=== PATIENT | female | born 1975 | race Caucasian/White ===

== ENCOUNTER 2018-12-23 06:15 | Day surgery (SDC) | payer BC ==
[2018-12-22 11:25] VITALS: BMI 29.2
--- NOTE | 2018-12-23 07:49 | HP ---
History & Physical Update - Physical Physical: No Change - Assessment Assessment: No Change - Plan Plan: No Change (H&P reviwed , no changes , for hysteroscopy , D&C ,polypectomy)
[2018-12-23] MEDS ORDERED: PROPOFOL 20 ML ONE ×3 (07:56→08:31)
[2018-12-23] MEDS ORDERED: LIDOCAINE HCL/PF 2% SDV 5ML VIAL ONE (07:56)
[2018-12-23] MEDS ORDERED: MIDAZOLAM HCL 2 MG/2 ML SINGLE DOSE VIAL ONE (07:57)
[2018-12-23] MEDS ORDERED: KETOROLAC TROMETHAMINE 30 MG/1 ML VIAL ONE (08:18)
[2018-12-23] MEDS ORDERED: IBUPROFEN 600 MG TABLET (FP) PO PRN (08:48)
[2018-12-23] MEDS ORDERED: ONDANSETRON 4 MG/2 ML VIAL IVPUSH PRN (08:48)
[2018-12-23] MEDS ORDERED: IBUPROFEN 800 MG/8 ML IJ IVPB PRN (08:48)
[2018-12-23] MEDS ORDERED: oxyCODONE HCL 5 MG TABLET PO PRN (08:48)
[2018-12-23] MEDS ORDERED: ELECTROLYTE-148 SOLN 1,000 ML IV SCH (09:00)
[2018-12-23 11:04] VITALS: BP 103/67; PULSE 63; TEMP 98
--- NOTE | 2018-12-23 13:26 | OP ---
DATE OF OPERATION: 12/23/2018 PREOPERATIVE DIAGNOSIS: Endometrial polyp, menorrhagia. POSTOPERATIVE DIAGNOSIS: Endometrial polyp, menorrhagia. SURGEON: Augie Liao MD ANESTHESIA: General. ANESTHESIOLOGIST: Sherrie Bender MD ESTIMATED BLOOD LOSS: 30 mL. PROCEDURE: Hysteroscopy, dilatation and curettage, and resection of the endometrial polyp. DESCRIPTION OF PROCEDURE: After the patient was taken to the operating room, had adequate general anesthesia in dorsal lithotomy position. Examination under anesthesia revealed external genitalia to be normal. Vagina was normal. Cervix was clean, no gross lesion. Uterus was normal size, anteverted. Adnexa, no masses were palpable. Then, with a weighted speculum in the vagina, anterior lip of the cervix was grasped with a single-tooth tenaculum. Uterine cavity was sounded to 8 cm. Then, diagnostic hysteroscopy was done. There was a large polyp at the lower uterine segment area obstructing the endocervix. With difficulty, the hysteroscope was passed by the polyp, and the fundal portion of the uterus was visualized. Both cornual regions were normal. No other abnormality was noted. Then, hysteroscope was switched to Symphion resectoscope, and then, the polyp was resected with the resectoscope and removed, and then, an endometrium was curetted. Patient tolerated the procedure well, left the OR in good condition. Fluid deficit was 300 mL. No complication. AUGIE LIAO M.D. MARY [id number]
--- NOTE | 2018-12-26 17:18 | PATH ---
Surgical Pathology Report Patient Name: MICHAEL RODRIGUEZ [facility]. Rec. #: [id number] /Age/Gender: 1975 (Age: 42) / F Account: [id number] Location: [facility] SURGICAL Taken: 12/23/2018 Received: 12/23/2018 Reported: 12/26/2018 Physicians: Augie Liao M.D. Specimen(s) Received A: ENDOMETRIAL POLYPS B: ENDOMETRIAL CURETTINGS Clinical History menorrhagia Hysteroscopic fibroid resection Final Diagnosis A. ENDOMETRIAL POLYPS, EXCISION: FRAGMENTS OF ENDOMETRIAL POLYP. FRAGMENTS OF SMOOTH MUSCLE BUNDLES, MAY REPRESENT A SUBMUCOSAL LEIOMYOMA IN THE PROPER CLINICAL SETTING. SEPARATE FRAGMENTS OF SECRETORY TYPE ENDOMETRIUM. B. ENDOMETRIAL CURETTINGS: FRAGMENTS OF SECRETORY TYPE ENDOMETRIUM AND UNREMARKABLE ENDOCERVICAL TISSUE. Electronically Signed Aaliyah Poe M.D. Gross Description A. Received in formalin, labeled "endometrial polyps" is a 3 x 1.8 x 0.2 cm aggregate of light mercer and brown mercer tissue. Entirely submitted in one cassette. B. Received in formalin labeled "endometrial curettings" is a 2 x 1.2 x 0.2 cm aggregate of red and brown mercer tissue. Entirely submitted in one cassette. AE/12/26/2018 ebram/12/26/2018
== END 2018-12-23 10:35 | disposition home or self-care (01) ==
LOC: JASU-SURG 06:15
PROVIDERS: ATTEND Obstetrics & Gynecology
PROC: 0UJD8ZZ Inspection of Uterus and Cervix, Via Natural or Artificial Opening Endoscopic (ICD-10-PCS; 2018-12-23)
PROC: 0UB97ZX Excision of Uterus, Via Natural or Artificial Opening, Diagnostic (ICD-10-PCS; principal; 2018-12-23 08:00)
PROC: 0UDB7ZX Extraction of Endometrium, Via Natural or Artificial Opening, Diagnostic (ICD-10-PCS; 2018-12-23 08:00)
DX: N84.0 Polyp of corpus uteri (principal); N92.0 Excessive and frequent menstruation with regular cycle
CPT/HCPCS: 84703; 88305-TC

== ENCOUNTER 2019-12-26 04:38 | Day surgery (SDC) | payer BC ==
--- NOTE | 2019-12-26 08:39 | HP ---
History & Physical Update - History History: No Change - Physical Physical: No Change - Assessment Assessment: No Change - Plan Plan: No Change (H&P reviwed , no changes for supracervical abdominal hyster ectomy, bilateral salpingectomy)
[2019-12-26] MEDS ORDERED: BUPIVACAINE LIPOSOME/PF (EXPAREL) 266 MG/20 ML VIAL ONE (08:46)
[2019-12-26] MEDS ORDERED: MIDAZOLAM HCL 2 MG/2 ML SINGLE DOSE VIAL ONE ×3 (08:47→09:30)
[2019-12-26] MEDS ORDERED: EPINEPHrine/PF 1 MG/1 ML (1:1,000) AMPULE ONE (09:18)
[2019-12-26] MEDS ORDERED: LIDOCAINE HCL 1%, 10 MG/ML (20ML VIAL) ONE (09:18)
[2019-12-26] MEDS ORDERED: ROCURONIUM BROMIDE 100 MG/10 ML VIAL ONE ×2 (09:28→11:01)
[2019-12-26] MEDS ORDERED: PROPOFOL 20 ML ONE (09:28)
[2019-12-26] MEDS ORDERED: fentaNYL CITRATE 250 MCG/5 ML VIAL ONE (09:28)
[2019-12-26] MEDS ORDERED: ceFAZolin SODIUM 1 GM VIAL IVPB ONE ×2 (09:40→15:31)
[2019-12-26] MEDS ORDERED: EPINEPHrine 1:1,000 - 30 MG/30 ML VIAL SQ ONE (09:53)
[2019-12-26] MEDS ORDERED: LIDOCAINE HCL 1%, 10 MG/ML (20ML VIAL) INF ONE ×2 (09:53→14:13)
[2019-12-26] MEDS ORDERED: HEPARIN NA (PORCINE) 5,000 UNITS/ML 1ML VIAL ONE (09:56)
[2019-12-26] MEDS ORDERED: SCOPOLAMINE HYDROBROMIDE 1 PATCH PATCH.TD72 ONE (09:58)
[2019-12-26] MEDS ORDERED: IBUPROFEN 600 MG TABLET (FP) PO PRN (13:03)
[2019-12-26] MEDS ORDERED: IBUPROFEN 800 MG/8 ML IJ IVPB PRN (13:03)
--- NOTE | 2019-12-26 13:12 | OP ---
Operative Note - Note: Operative Date: 12/26/19 Pre-Operative Diagnosis: menometrorrhagia , fibroid. pelvic pain Operation: supracervical abdominal hysterectomy, bilateral salpingectomy, lysis of pelvic adhesions Findings: irregular uterus, with fibroids, pelvic adhesion , fascia defect Implants: mesh Post-Operative Diagnosis: Same as Pre-op Surgeon: Augie Liao Baggage Porter: Gertrudis Galan Anesthesia: General Specimens Removed: uterus, both tubes Estimated Blood Loss (mls): 50 Drains & Tubes with Location: parish, wound drains Blood Volume Replaced (mls): 0 Operative Report Dictated: Yes
--- NOTE | 2019-12-26 14:00 | OP ---
Operative Note - Note: Operative Date: 12/26/19 Pre-Operative Diagnosis: menometrorrhagia/uterine fibroids/pelvic pain Operation: repair incisional hernia w/Phasix mesh Findings: incisional hernia just below the umbilical stalk from three previous c-sections. Implants: Phasix mesh Surgeon: Jaswant Saab Home Housekeeper: Clarence Villalba Anesthesia: General Specimens Removed: none Estimated Blood Loss (mls): 0 Drains & Tubes with Location: per Dr. Chacha Brown
[2019-12-26] MEDS ORDERED: EPINEPHrine/PF 1 MG/1 ML (1:1,000) AMPULE SQ ONE (14:13)
[2019-12-26] MEDS ORDERED: HYDROmorphone HCl 2 MG/ML VIAL ONE ×2 (14:37→16:54)
[2019-12-26] MEDS ORDERED: BACITRACIN 15 GM TUBE TOPICAL OINTMENT ONE (14:46)
[2019-12-26] MEDS ORDERED: oxyCODONE HCL 5 MG TABLET PO PRN (15:08)
[2019-12-26] MEDS ORDERED: NEOSTIGMINE METHYLSULFATE 0.5 MG/ML - 10 ML MDV ONE (15:12)
[2019-12-26] MEDS ORDERED: LACTATED RINGERS SOLUTION 1,000 ML IV SCH (15:15)
--- NOTE | 2019-12-26 15:50 | SURG ---
Surgery Physician Executive Note Physician Executive: Clarence Villalba PA-C Date of Service: 12/26/19 Diagnosis: menometrorrhagia/uterine fibroids/pelvic pain Procedure: repair incisional hernia w/Phasix mesh I was present for the entirety of the operative procedure. For further detail, please refer to operative report. Visit type - Case Type Case Type: Scheduled - New patient This patient is new to me today: Yes Date on this admission: 12/26/19
--- NOTE | 2019-12-26 15:59 | OP ---
Operative Note - Note: Operative Date: 12/26/19 Pre-Operative Diagnosis: abdominal cosmetic deformity Operation: abdominoplasty with trunk liposuction Post-Operative Diagnosis: Same as Pre-op Surgeon: Lazarus Brown Pre Press Operator: Clarence Villalba Anesthesia: General Drains & Tubes with Location: GWYN x 2 Operative Report Dictated: Yes
[2019-12-26] MEDS ORDERED: HYDROmorphone HCl 2 MG/ML VIAL IVPUSH ONE ×3 (17:00→17:10)
[2019-12-26] MEDS: ACETAMINOPHEN 325 MG TABLET (FP) PO SCH ×2 (17:54→21:17)
[2019-12-26] MEDS: ELECTROLYTE-148 SOLN 1,000 ML IV SCH ×2 (17:54→19:28)
[2019-12-26] MEDS: traMADol HCL 50 MG TABLET PO PRN (19:30)
--- NOTE | 2019-12-26 20:10 | OP ---
DATE OF OPERATION: 12/26/2019 TITLE OF PROCEDURE: Abdominoplasty with trunk liposuction. PREOPERATIVE DIAGNOSIS: Cosmetic abdominal deformity. POSTOPERATIVE DIAGNOSIS: Cosmetic abdominal deformity. The procedure is performed in combination with a hysterectomy performed by Dr. Augie Liao, and a ventral hernia repair performed by Dr. Saab. Those procedures will be dictated separately. The patient is seen in the holding area. She is counseled on all risks, benefits, and alternatives to the procedure. We discussed the planned scars and the likelihood of needing a small vertical component in order to have a tension-free closure on the abdomen as well as the periumbilical scar. Patient understands. All risks, benefits, and alternatives to the procedure are thoroughly discussed, understood, and she agrees to proceed. Markings were made. Patient is afterwards assessed by anesthesia. She is given blocks by anesthesia as per the gynecologic order. She is then brought to the operating room and placed in a supine position. All pressure points are carefully padded. Two arm foam cradles are used. Heel pads used and pillow is placed below the knees. Sequential compression devices and JOSSIE hose are applied to the legs. Perioperatively, 5000 units of subcutaneous heparin is given. After anesthesia is given, a Oneill catheter is placed. She is then prepped and draped in standard surgical fashion. 2 g of Ancef were given IV, and a timeout is called. Patient, procedure, side, sites are verified. At this point I made the initial incision at the level of the existing section scar, 2 mm below this, and dissection was carried down to the level of the abdominal wall fascia. Dissection was then continued 2[address] towards the umbilicus along the fascia. Hemostasis was achieved. The fascia was entirely intact prior to my scrubbing out and handing the case over to Dr. Liao and his stores assistant for performing the hysterectomy. That portion of the procedure is dictated separately. I returned to the room after being called, and the procedure was completed. However, I was notified that there was a new fascial defect in the midline infraumbilical and also superior to the transverse fascial incision that was made for the hysterectomy. This described fascial defect was not present when I scrubbed out of the surgery before the hysterectomy. Upon evaluation of this, I determined that a primary closure of the fascia defect might not be possible and would not be prudent, and therefore a consultation intraoperatively with a general surgeon was recommended. I instructed the OR and Dr. Liao to contact Dr. Jaswant Saab, general surgeon, for repair of the fascial defect. This was done by him. I scrubbed out again to allow him and his stores assistant to repair the fascial defect which they did with mesh after I am called back into the operating, the continuation of the abdominoplasty began. Dissection was then continued along the abdominal wall fascia to the level of the umbilicus. The umbilicus was then circumcised and developed on a fibrofatty stalk down to the abdominal wall fascia. Adequate periumbilical tissue was left for umbilical blood supply. Dissection was then continued along the fascial wall to the xiphoid process in the midline costal margins bilaterally. The plication that was planned for this operation needed to consider the fascial defect and the mesh that was exposed, as discussed with Dr. Saab it would not have been prudent to use the mesh alone as a layer for plication, as this might put tension on the mesh, pull it away from its fascial repair, and also distort the mesh. The plication however was able to be performed in separate layers, closing fascia entirely over the mesh at the level of the defect and plicating to an even tension both inferior and superior to the defect. A gap of the plication is preserved by the umbilicus to allow for the umbilical translocation. The first layer of the plication performed with a series of number 1 Prolene qujftp-jg-uolot buried suture followed by a 2nd layer of number 1 Prolene running locking suture both above and below the umbilicus. A good even tension repair was performed with good plication both above and below the umbilicus. Hemostasis once again was meticulously achieved. The patient is brought to a 30-degree flexed position where the abdominoplasty flaps were marked for trimming. It is determined that as predicted the entirety of the skin between the pubic incision and the umbilicus could not be fully excised, and therefore the level of excision was below the defect from the umbilicus and a small vertical closure is planned at the suprapubic skin. The undersurface of the flap is trimmed with scissors in the suprapubic and midepigastric periumbilical regions. Hemostasis was again achieved. The skin is then tailor tacked and areas for liposuction are marked. The wetting solution is infiltrated. The wetting solution is a liter of LR with 10 mL 1% lidocaine plain, 1 ampule of 1:100,000 epinephrine infiltrated into the midepigastrium as well as bilateral flanks. While this is working, the umbilicus is sited, Star Trek pattern is chosen for the umbilicus inset. A notch is removed from the 6 o'clock position of the umbilicus and a 6 o'clock flap is then left on the abdominoplasty defect for translocation. A core of fat is removed to allow for the umbilicus to be translocated. This is done and is inset with a series of interrupted buried deep dermal 3-0 Monocryl suture followed by a running subcuticular 3-0 Monocryl suture at the apices of the pattern 4-0 nylon is used. The umbilicus is pink and viable. Prior to further closing, 2 size 10 flat GWYN drains are brought out the lateral extents of the incision; they are secured with 2-0 silk drain sutures. The right drain is in the superior recess of the abdomen, and the left drain is in the inferior recess of the abdomen. The skin is then tailor tacked once again, closure is performed of the Shantanu layer with a series of buried 2-0 Vicryl suture. The skin is then closed with a series of interrupted buried deep dermal 3-0 Monocryl suture followed by a running 3-0 Monocryl V-Loc suture in the mid dermis. The vertical uptake is closed with a series of interrupted buried deep dermal 3-0 Monocryl suture followed by a running subcuticular 3-0 Monocryl suture. Prior to final closure, liposuction is performed in the midepigastrium only. A 3-mm cannula is used, total lipoaspirate of 100 mL yielded and 200 mL is yielded from either flank using both 3 and 4-mm cannulas. Two separate stab wound incisions are made in either flank for access to the more posterior flank. A left inframammary stab wound incision is made for midepigastric liposuction. Endpoint is smooth, even contour. The abdominoplasty flap is pink and viable. The liposuction holes are closed with 5-0 fast absorbing plain gut. Steri-Strips are applied. ABDs, gauze is applied. Bacitracin, Xeroform is used in the umbilicus and abdominal binder is applied. Patient is maintained in the flexed position, woken from anesthesia without problem and transferred to her hospital bed without complication, and maintained in a flexed position. Oneill catheter is left in. LES LOVE M.D. [id number]
[2019-12-26] MEDS: ceFAZolin 2 GRAM PREMIX BAG IVPB SCH (22:02)
[2019-12-26] MEDS: ONDANSETRON 4 MG/2 ML VIAL IVPUSH PRN (22:36)
[2019-12-26] MEDS: oxyCODONE HCL 5 MG TABLET PO PRN (22:36)
[2019-12-27] MEDS: oxyCODONE HCL 5 MG TABLET PO PRN (02:44)
[2019-12-27] MEDS: ACETAMINOPHEN 325 MG TABLET (FP) PO SCH ×2 (02:44→09:42)
[2019-12-27] MEDS: ceFAZolin 2 GRAM PREMIX BAG IVPB SCH (06:08)
[2019-12-27] MEDS: ONDANSETRON 4 MG/2 ML VIAL IVPUSH PRN (06:38)
[2019-12-27] MEDS: traMADol HCL 50 MG TABLET PO PRN (06:39)
--- NOTE | 2019-12-27 07:18 | PN ---
Progress Note (short form) - Note Progress Note: POD 1 VSS AF Patient OOB to chair, lovenox to start this morning Pain controlled All tissues viable with no collections or bleed Oneill out, TOV starts now, UOP adequate GWYN care reviewed, GWYN output moderate thin serosanguinous fluid OK for discharge once passes TOV, f/u Stephanie Wednesday, Yanni one week
--- NOTE | 2019-12-27 07:51 | PN ---
Progress Note (short form) - Note Progress Note: pod 1 , doing well, no vaginal bleeding, afebrile Last Vital Signs Temp Pulse Resp BP Pulse Ox 98.1 F 81 18 111/55 L 93 L 12/27/19 06:56 12/27/19 06:56 12/27/19 06:56 12/27/19 06:56 12/27/19 06:56 abdomen soft, no distension, no cva , BS are present incison dry, covered no calf tenderness no vaginal bleeding pod 1 afebrile plan cbc , incentive spirometer paim managementfollow up office 1 week \ d/c home today
[2019-12-27 08:11] LABS: BLOOD UREA NITROGEN 12.5 mg/dL (7-18); CALCIUM 8.1 mg/dL (8.5-10.1); CREATININE 0.7 mg/dL (0.55-1.3); POTASSIUM 3.9 mmol/L (3.5-5.1)
[2019-12-27] MEDS ORDERED: ENOXAPARIN NA (PORCINE) 40 MG/0.4 ML DISP.SYRIN SQ SCH ×2 (10:00)
[2019-12-27 10:24] VITALS: BP 106/52; PULSE 80; TEMP 98
--- NOTE | 2019-12-28 14:22 | OP ---
DATE OF OPERATION: 12/26/2019 PREOPERATIVE DIAGNOSES: Menometrorrhagia, fibroid uterus, pelvic pain. POSTOPERATIVE DIAGNOSES: Menometrorrhagia, fibroid uterus, pelvic pain. PROCEDURE: Supracervical abdominal hysterectomy and bilateral salpingectomy. SURGEON: Clifford Espana MD ANESTHESIA: General. ESTIMATED BLOOD LOSS: 150 mL. DESCRIPTION OF PROCEDURE: Patient was taken to the operating room, underwent adequate general anesthesia. Abdomen and perineum were prepped and draped. Oneill catheter was inserted. In dorsal supine position, a Pfannenstiel abdominal skin incision was made over the previous incision. Abdominal wall was cut layer by layer until fascia was exposed. Upper portion of the fascia appeared to be very thin from the previous section. Then fascia was incised transversely and then grasped with 2 Michele clamps. Fascia was adherent to the rectus muscle superiorly. During the separation of the fascia from the muscle, considering the thinness of the fascia, there was a defect seen in the fascia upper layer. Then muscle was split. The peritoneum was grasped with 2 My clamps and entered. Bowels were packed away. Upper abdomen was checked, was normal. Uterus was irregular with multiple myomas. Bladder was adherent to the lower uterine segment from previous . Both tubes were normal. The right ovary has an ovarian cyst approximately 4 cm round and smooth surface. Then round ligament was grasped with My clamp, then cauterized with bipolar cautery, and then anterior leaf of the broad ligament was opened, but because of the adhesion of the bladder, there was difficulty opening up the anterior leaf of broad ligament, and then with Metzenbaum scissors, bladder was dissected from the cervix and pushed down. Then the right ovarian cyst was grasped with a My clamp and excised with the cautery, and then the ovary was reconstructed with interrupted suture of 3-0 Vicryl. Hemostasis was established. Then right tube was grasped with a bipolar cautery, cauterized and removed. The same procedure repeated for opposite tube. Opposite tube was removed. Then uterine artery was identified bilaterally, and bladder was further pushed down, clamped and cut, and the clamp replaced with 2-0 Vicryl suture bilaterally. Paracervical area was clamped with Mele clamp and cut, and the clamp replaced with 0 Vicryl suture bilaterally. Then the uterus was cut above the cervix with cautery, and then cervical hemostasis was established with interrupted suture of 2-0 Vicryl on the cervix. Pelvic cavity was at this time irrigated, no active bleeding was seen. Cul-de-sac was clear. Then peritoneum was closed with 0 Vicryl continuous suture. Muscles were brought together with interrupted suture of 0 Biosyn, and fascia was closed with 2-0 Vicryl continuous suture. Then Dr. Saab evaluated the defect in the fascia and decided to repair it with mesh, which he will dictate the operative report, and Dr. Brown will dictate his portion of the operating report for abdominoplasty. CLIFFORD ESPANA M.D. [id number]
--- NOTE | 2019-12-28 17:49 | PATH ---
Surgical Pathology Report Patient Name: MICHAEL RODRIGUEZ [facility]. Rec. #: [id number] /Age/Gender: 1975 (Age: 43) / F Account: [id number] Location: AMBULATORY SURG Taken: 12/26/2019 Received: 12/26/2019 Reported: 12/28/2019 Physicians: Augie Liao M.D. Specimen(s) Received A: RIGHT OVARIAN CYST B: RIGHT FALLOPIAN TUBE C: LEFT FALLOPIAN TUBE D: UTERUS Clinical History Leiomyoma of uterus Final Diagnosis A. OVARIAN CYST, RIGHT, CYSTECTOMY: OVARY WITH CORPUS LUTEUM CYST. B. FALLOPIAN TUBE, RIGHT, SALPINGECTOMY: FALLOPIAN TUBE WITH ENDOSALPINGOSIS AND PARATUBAL CYST (INCLUDING FIMBRIATED END AND FULL LUMINAL PORTION). C. FALLOPIAN TUBE, LEFT, SALPINGECTOMY: FALLOPIAN TUBE WITH ENDOSALPINGOSIS (INCLUDING FIMBRIATED END AND FULL LUMINAL PORTION). D. UTERUS, ABDOMINAL SUPRACERVICAL HYSTERECTOMY: 111 G UTERUS. LEIOMYOMA(TA), INTRAMURAL AND SUBMUCOSAL. ENDOMETRIAL POLYP. SECRETORY ENDOMETRIUM. Electronically Signed Guerline Ortiz M.D. Gross Description A. Received in formalin labeled "right ovarian cyst," is a 2.8 x 2.2 x 1.8 cm intact cyst. The outer surface is mercer-rockwell and smooth. Sectioning reveals mercer-brown gelatinous material within the lumen. Digital Sales Representative sections are submitted in 3 cassettes. B. Received in formalin labeled "right fallopian tube," is a 3 cm in length fimbriated fallopian tube. The outer surface is mercer-brown with a 0.7 cm in greatest dimension paratubal cyst attached. Sectioning reveals an unremarkable lumen. Digital Sales Representative sections are submitted in 2 cassettes as follows: 1-fimbria; 2-cross sections of fallopian tube with paratubal cyst. C. Received in formalin labeled "left fallopian tube," is a 3.5 cm in length fimbriated fallopian tube. The outer surface is mercer-rockwell and smooth. Sectioning reveals an unremarkable lumen. Digital Sales Representative sections are submitted in 2 cassettes as follows: 1-fimbria; 2-cross sections of fallopian tube. D. Received in formalin labeled "uterus," is a 111 g supracervically amputated uterus without attached adnexa. The specimen measures 8.5 cm from superior to inferior, 6.2 cm from left to right and 4.4 cm from anterior to posterior. The serosa is mercer-rockwell and smooth. The endometrial cavity measures 5.5 cm in length and 2.8 cm from cornu to cornu. There is a 3.5 x 1.5 x 1.2 cm endometrial polyp in the anterior lower uterine segment. The polyp is protruding through the cervical stump margin of resection. The remaining endometrium is mercer-pink and measures up to 0.3 cm in thickness. There is a 3.2 cm in greatest dimension intramural nodule. The cut surface of the nodule is mercer and rubbery with a whorled architecture. No areas of hemorrhage or necrosis are identified. The remaining myometrium is mercer-pink and averages 2.2 cm in thickness. Digital Sales Representative sections are submitted in 11 cassettes as follows: 1-2-one bisected full thickness section of polyp; 9-1-ybwtxvepqx bisected full-thickness section of polyp; 7-3-btefrairud bisected full-thickness section of polyp; 7-uninvolved anterior endomyometrium; 4-0-aqdjukyhe endomyometrium; 60-71-kgigeooust nodule. 12/27/2019 saudi12/27/2019
--- NOTE | 2019-12-31 12:05 | OP ---
DATE OF OPERATION: 12/26/2019 PREOPERATIVE DIAGNOSIS: Menometrorrhagia and uterine fibroids and pelvic pain. POSTOPERATIVE DIAGNOSIS: Menometrorrhagia and uterine fibroids and pelvic pain plus incisional hernia. PROCEDURE: Intraoperative General Surgery Consultation and repair of incisional hernia/fascial defect with Phasix mesh. SURGEON: Jaswant Saab MD FISH CULTURIST: Clarence Villalba PA-C ANESTHESIA: General. OPERATIVE FINDINGS: The patient was in the operating room for a hysterectomy for menometrorrhagia and uterine fibroids and pelvic pain as scheduled by Dr. Liao and for an abdominoplasty as scheduled by Dr. Brown. At the time I was called to the operating room at the completion of the hysterectomy and prior to the completion of the abdominoplasty, there was noted by Dr. Brown and Dr. Liao a defect in the anterior abdominal fascia below the umbilicus as a result of the hysterectomy and previous sections. Leaving this defect would have resulted in an incisional hernia being present postop in the face of an abdominoplasty and because of this intraoperative consultation was requested to repair this defect prior to completion of the abdominoplasty. The peritoneum was partially opened below the defect in the fascia and the rest of the findings were unremarkable. PROCEDURE: With the patient already under general anesthesia, the previously noted findings were observed. The opened peritoneum was closed using continuous 2-0 Vicryl and then a piece of Phasix mesh was fashioned to the defect as an underlay, being extraperitoneal and retrofascial. The mesh was placed with at least 2 cm underlayment around the defect and it was secured in place with interrupted 0 Prolene sutures. After placement of the mesh, the remainder of the procedure was continued by Dr. Brown who will dictate the details of that procedure. ESTIMATED BLOOD LOSS: 0 SPECIMENS: None. DRAINS: As per Dr. Brown. I, Jaswant Saab, was physically present in the operating room from the time I was called for intraoperative consultation until I finished repair of the fascial defect/hernia and left the room with the patient under general anesthesia for continuing surgery by Dr. Brown. MD JESUS Mott/[id number] [facility]
== END 2019-12-27 12:22 | disposition home or self-care (01) ==
LOC: JASUSAT 04:38 → EDSTATUS 09:00 → J8W 17:59 → JASUSAT 12-27 12:22
PROVIDERS: ATTEND Obstetrics & Gynecology
PROC: 0J080ZZ Alteration of Abdomen Subcutaneous Tissue and Fascia, Open Approach (ICD-10-PCS; 2019-12-26)
PROC: 0J083ZZ Alteration of Abdomen Subcutaneous Tissue and Fascia, Percutaneous Approach (ICD-10-PCS; 2019-12-26)
PROC: 0UT90ZL Resection of Uterus, Supracervical, Open Approach (ICD-10-PCS; principal; 2019-12-26 09:00)
PROC: 0UT70ZZ Resection of Bilateral Fallopian Tubes, Open Approach (ICD-10-PCS; 2019-12-26 09:00)
PROC: 0WUF0JZ Supplement Abdominal Wall with Synthetic Substitute, Open Approach (ICD-10-PCS; 2019-12-26 09:00)
DX: N92.1 Excessive and frequent menstruation with irregular cycle (principal); D25.1 Intramural leiomyoma of uterus; D25.2 Subserosal leiomyoma of uterus; N83.11 Corpus luteum cyst of right ovary; N94.89 Other specified conditions associated with female genital organs and menstrual cycle; K43.2 Incisional hernia without obstruction or gangrene; M95.8 Other specified acquired deformities of musculoskeletal system
CPT/HCPCS: 36415; 80048; 84703; 86850; 86900; 86901; 88302-TC; 88305-TC; 88307-TC; 94760; J1644